=== PATIENT | female | born 1930 | race Caucasian/White ===

== ENCOUNTER 2017-03-10 01:25 | Emergency (ER) | payer OTHER, BC ==
[~2017-03-10] VITALS: Ht 162.6 cm; Wt 61.3 kg
[~2017-03-10 01:25] MED LIST: ACETAMINOPHEN-1 EAC1 PO; Aspirin E.C. PO; CYANOCOBALAMI100 MCG PO; FOLIC ACID0.4 MG PO; FOLVITE1 M1 PO; LISINOPRIL10 MG PO; NEO-BACIT-POLY3.5 G2 RIGHT EYE; SIMVASTATIN20 MG PO; TRAMADOL HCL50 MG PO; VITAMIN B12 100MCG PO; VITAMIN D32000 UNI1 PO; Vicodin,Norco 5/325 PO; XARELTO20 MG PO; ZESTRIL,PRINIVI10 M1 PO; Zocor PO
[2017-03-10 03:20] VITALS: BP 153/84
== END 2017-03-10 03:21 | disposition home or self-care (01) ==
LOC: EME 01:25
PROC: 0RSWXZZ Reposition Right Finger Phalangeal Joint, External Approach (ICD-10-PCS; principal; 2017-03-10)
DX: S63.282A Dislocation of proximal interphalangeal joint of right middle finger, initial encounter (principal); W23.0XXA Caught, crushed, jammed, or pinched between moving objects, initial encounter
CPT/HCPCS: 73140; 99281; 99284

== ENCOUNTER 2017-06-10 14:56 | Emergency (ER) | payer OTHER, BC ==
[~2017-06-10] VITALS: Ht 154.9 cm; Wt 62.4 kg
[2017-06-10 16:34] LABS: HEMATOCRIT 28.9 % (36.0-46.0); MCH 31.7 PG (29.0-34.0); MCHC 32.2 G/DL (30.0-36.0); MCV 98.6 FL (83-99); MEAN PLAT.VOLUME 9.6 uM^3 (9.5-12.4); PLATELET COUNT 146 K/uL (156-360); RBC DIS.WIDTH-CV 13.6 % (11.8-14.6); RBC DIS.WIDTH-SD 49.2 % (39-53); RED BLOOD COUNT 2.93 M/uL (3.80-5.20); WHITE BLOOD COUNT 7.1 K/uL (4.1-10.2)
[2017-06-10 16:43] LABS: CHLORIDE 113 mEq/L (99-109); POTASSIUM 3.2 mEq/L (3.7-5.4); SODIUM 144 mEq/L (136-147)
[2017-06-10 16:44] LABS: GLUCOSE 89 mg/dL (70-99)
[2017-06-10 16:46] LABS: ANION GAP 5 MEQ/L (2-14)
[2017-06-10 16:48] LABS: GFR ESTIMATE (CALCULATED) 56 mL/min/
[2017-06-10 16:49] LABS: UREA NITROGEN (BUN) 16 mg/dL (9-23)
[2017-06-10 16:56] LABS: TROP-I INTERPRETATION NEGATIVE; TROPONIN-I 0.02 ng/mL (0.0-0.30)
[2017-06-10 19:00] VITALS: BP 168/83
== END 2017-06-10 19:01 | disposition home or self-care (01) ==
LOC: EME 14:56
PROVIDERS: Nurse Practitioner Family
DX: I10 Essential (primary) hypertension (principal); Z90.710 Acquired absence of both cervix and uterus; R60.0 Localized edema; D64.9 Anemia, unspecified; R79.89 Other specified abnormal findings of blood chemistry
CPT/HCPCS: 71020; 80048; 83880; 84484; 85027; 93005; 99281; 99284